=== PATIENT | male | born 1990 | race Caucasian/White ===

== ENCOUNTER → 2025-07-01 13:04 | Outpatient (REF) | payer BC, SELFPAY | LOC: RAD 13:04 | PROVIDERS: ATTENDING PHYSICIAN Family Medicine; FAMILY PHYSICIAN Family Medicine | DX: M77.8 Other enthesopathies, not elsewhere classified (principal); M25.512 Pain in left shoulder | CPT/HCPCS: 73030 ==

== ENCOUNTER → 2025-07-22 09:49 | Outpatient (REF) | payer BC, SELFPAY | LOC: WDC 09:49 | PROVIDERS: ATTENDING PHYSICIAN Family Medicine | DX: M79.622 Pain in left upper arm (principal); N64.4 Mastodynia | CPT/HCPCS: 76642; 77062; 77066 ==